=== PATIENT | male | born 1995 | race Caucasian/White ===

== ENCOUNTER 2022-03-07 06:19 | Emergency (ER) | payer OTHER ==
[~2022-03-07] VITALS: Ht 170.2 cm; Wt 65.9 kg
[2022-03-07] MEDS ORDERED: IBUP-1022 PO ×2 (06:43→09:25)
[2022-03-07] MEDS ORDERED: METH-1164 PO (09:25)
[2022-03-07 09:31] VITALS: BP 113/65
== END 2022-03-07 09:00 | disposition home or self-care (01) ==
LOC: M ED 06:19
DX: S39.012A Strain of muscle, fascia and tendon of lower back, initial encounter (principal)

== ENCOUNTER 2025-02-04 08:17 | Emergency (ER) | payer OTHER ==
[~2025-02-04] VITALS: Ht 170.2 cm; Wt 65.3 kg
[~2025-02-04 08:17] MED LIST: IBUP-1022 PO; METH-1164 PO
[2025-02-04 08:39] LABS: BASO # 0.0 10^3/uL (0.0-0.2); BASO % 0.9 % (0.0-1.0); EOS # 0.1 10^3/uL (0.0-0.5); EOS % 2.1 % (0.0-3.0); LYMPH # 1.4 10^3/uL (1.5-5.0); LYMPH % 33.1 % (24.0-44.0); MONO # 0.5 10^3/uL (0.0-0.8); MONO % 10.5 % (2.0-8.0); NEUTROPHILS # 2.3 10^3/uL (1.5-8.5); NEUTROPHILS % 53.2 % (36.0-66.0); PLATELET COUNT, AUTOMATED 210 10^3/uL (150-450)
[2025-02-04 09:12] LABS: ALT/SGPT 51 U/L (7.0-40); AST/SGOT 40 U/L (<34); CALCIUM LEVEL 9.1 MG/DL (8.5-10.1); CARBON DIOXIDE LEVEL 32 MMOL/L (20-31); CHLORIDE LEVEL 103 MMOL/L (98-107); CREATININE FOR GFR 1.03 MG/DL (0.70-1.30); GLOMERULAR FILTRATION RATE > 90.0 (>60); POTASSIUM SERUM 5.1 MMOL/L (3.5-5.1); SODIUM LEVEL 143 MMOL/L (136-145)
[2025-02-04 09:18] VITALS: TEMP 96.9
[2025-02-04 10:00] VITALS: BP 122/78; O2SAT 100
== END 2025-02-04 10:17 | disposition home or self-care (01) ==
LOC: M ED 09:34
DX: R10.33 Periumbilical pain (principal)